=== PATIENT | male | born 1970 | race Caucasian/White ===

== ENCOUNTER 2016-12-19 22:16 | Emergency (ER) | payer SELFPAY ==
[~2016-12-19 22:16] MED LIST: INSU100V13 SQ; INSU100V31 SQ
[2016-12-19 22:44] VITALS: BP 221/100
[2016-12-19] MEDS ORDERED: AMOX500C PO (23:43)
[2016-12-19] MEDS ORDERED: HYDR-971 PO (23:43)
--- NOTE | 2016-12-19 23:44 | PHYS DOC ---
Past Medical History Past Medical History: Arthritis, Diabetes-Type II, Stroke Past Surgical History: No Surgical History Alcohol Use: None Drug Use: None Adult General Chief Complaint Chief Complaint: DENTAL PROBLEM HPI HPI Patient is a 46 year old male presents to the emergency department stating that he was eating [place] food tonight when he had the feeling of his right third tooth from the front, now. Patient also has an area in the right back area that appears to have had the filling come out as well. Patient denies any fever, chills or any nausea vomiting he denies any foul taste in the mouth. Patient does state he is an insulin-dependent diabetic. He states that there is been no change in his glucoses. Review of Systems Review of Systems Constitutional: Denies fever or chills [] Eyes: Denies change in visual acuity, redness, or eye pain [] HENT: Denies nasal congestion or sore throat. C/o dental pain Respiratory: Denies cough or shortness of breath [] Cardiovascular: No additional information not addressed in HPI [] GI: Denies abdominal pain, nausea, vomiting, bloody stools or diarrhea [] : Denies dysuria or hematuria [] Musculoskeletal: Denies back pain or joint pain [] Integument: Denies rash or skin lesions [] Neurologic: Denies headache, focal weakness or sensory changes [] Allergies Allergies Allergies Coded Allergies Type Severity Reaction Last Updated Verified No Known Drug Allergies 11/06/15 No Physical Exam Physical Exam Constitutional: Well developed, well nourished, no acute distress, non-toxic appearance. [] HENT: Normocephalic, atraumatic, bilateral external ears normal, oropharynx moist, no oral exudates, nose normal. Bilateral tympanic membranes appear to be normal. Patient was noted to have a broken off tooth on the right front tooth patient was also noted to right molar tooth that appears to be broken off as well. No tenderness noted Eyes: PERRLA, EOMI, conjunctiva normal, no discharge. [] Neck: Normal range of motion, no tenderness, supple, no stridor. [] Cardiovascular:Heart rate regular rhythm, no murmur [] Lungs & Thorax: Bilateral breath sounds clear to auscultation [] Skin: Warm, dry, no erythema, no rash. [] Back: No tenderness Extremities: No tenderness, no cyanosis, no clubbing, ROM intact, no edema. [] Neurologic: Alert and oriented X 3, normal motor function, normal sensory function, no focal deficits noted. [] Psychologic: Affect normal, judgement normal, mood normal. [] Current Patient Data Vital Signs Vital Signs Date Time Temp Pulse Resp B/P Pulse Ox O2 Delivery O2 Flow Rate FiO2 12/19/16 22:44 97.9 107 18 96 Room Air 97.9 EKG EKG [] Radiology/Procedures Radiology/Procedures [] Course & Med Decision Making Course & Med Decision Making Pertinent Labs and Imaging studies reviewed. (See chart for details) She'll be provided with hydrocodone here in the emergency department as he has a ride. Patient will be provided with hydrocodone at home she'll also be placed on amoxicillin 500 mg 4 times a day. Also recommended him following up with his dentist in calling for an appointment tomorrow. Signs and symptoms to return back to emergency department been provided. Patient agrees with discharge instructions treatment regimens and follow-up recommendations. [] Dragon Disclaimer Dragon Disclaimer This electronic medical record was generated, in whole or in part, using a voice recognition dictation system. Departure Departure Impression: Primary Impression: Pain, dental Disposition: HOME, SELF-CARE Condition: STABLE Referrals: NO PCP (PCP) Patient Instructions: Dental Pain, [id number] Additional Instructions: Activity as tolerated. Medications as prescribed. Hydrocodone will cause drowsiness do not take any be alert and oriented. Call in the morning for your dentist appointment at his is essential for you to get in. Return to the emergency department for signs and symptoms of become worse. Scripts Amoxicillin 500 Mg Capsule1 Cap PO BID #20 CAP Prov:SRINIVAS KENT CERTIFIED PERFORMANCE TECHNOLOGIST 12/19/16 Hydrocodone/Apap 5-325 ([place] 5-325 Tablet)1 Each Tablet1 Tab PO PRN Q6HRS PRN PAIN #10 TAB Prov:SRINIVAS KENT APRN 12/19/16 SRINIVAS KENT APRN Dec 19, 2016 23:44
[2016-12-19] MEDS ORDERED: HYDROCODONE/APAP 5/325MG TABLET. PO ONE (23:45)
== END 2016-12-19 23:49 | disposition home or self-care (01) ==
LOC: ER 22:16
DX: K08.89 Other specified disorders of teeth and supporting structures (principal); M19.90 Unspecified osteoarthritis, unspecified site; E11.9 Type 2 diabetes mellitus without complications; Z86.73 Personal history of transient ischemic attack (TIA), and cerebral infarction without residual deficits
CPT/HCPCS: 99283